=== PATIENT | female | born 1945 | race Caucasian/White ===

== ENCOUNTER 2019-09-08 12:21 | Day surgery (SDC) | payer MEDICARE, SELFPAY ==
[2019-09-08] VITALS (12 sets, daily range): BP systolic 119–148; BP diastolic 41–79; PULSE 80–96; RESP 15–26; TEMP 36.8–38.1; O2SAT 92–98; BMI 36.8
--- NOTE | 2019-09-08 12:26 | PM.PREOP ---
Pre-operative Note Interval Note History & Physical reviewed/Exam performed by Physician: Yes Changes to H&P: No H&P completed within 30 days and has changed as indicated here:: No changes to the history and physical examination scanned on file.
--- NOTE | 2019-09-08 12:46 | SUR.OPER ---
Lithotomy on padded OR bed, head on pillow, arms secured on padded arm boards at <90 degrees abduction. Legs secured in padded yellow fins stirrups.
[2019-09-08] MEDS: LACTATED RINGERS 1,000 ML 42 ML IV (13:00)
--- NOTE | 2019-09-08 13:00 | PM.PREOP ---
Pre-operative Note Interval Note History & Physical reviewed/Exam performed by Physician: Yes Changes to H&P: No H&P completed within 30 days and has changed as indicated here:: There are no changes to the history and physical examination scanned on file.
[2019-09-08] MEDS: CEFAZOLIN 2 GM/100 ML FROZ.PIGGY IV (13:15)
--- NOTE | 2019-09-08 13:46 | SUR.OPER ---
Lithotomy on padded OR bed, head on pillow, arms secured on padded arm boards at <90 degrees abduction. Legs secured in padded yellow fins stirrups.
[2019-09-08] MEDS: BELLADONNA/OPIUM SUPPOSITORIES 1 EACH PR (14:28)
--- NOTE | 2019-09-08 14:33 | PM.OP.1 ---
Operative Date/Time/Diagnoses Date of procedure: 09/08/19 Time of procedure: 14:33 Pre-op diagnosis: Obstructing 7 x 9 mm left proximal ureteral calculus. History of urosepsis/pyelonephritis. Post-op diagnosis: same Procedure & Clinicians Procedure: 1. Cystoscopy and left ureteroscopic laser lithotripsy. 2. Cystoscopy and removal left ureteral stent. Same procedure as scheduled: Yes Indications: 1. Obstructing 7 x 9 mm left proximal ureteral calculus. 2. History of urosepsis/pyelonephritis. Surgeon: Regla Madsen Click Yes if Unassisted: Yes Anesthesia Type: General Operative Notes Findings: 1. Urethra-moderate size caruncle. 2. Grade 2 +cystocele. 3. Bladder-trace trabeculation normal position of the orifices bilaterally. The left ureteral orifice had expected edema and erythema in association with an encrusted stent. 4. A larger calculus was identified near the same position seen previously radiographically there appeared to be either a 2nd stone or fragment of the dominant stone located at the level of the UPJ. Ran stones were fragmented with the laser and fragments evacuated from the ureter. Specimen was obtained postoperatively from the drain and submitted for routine crystallographic analysis. Closure Type: not applicable Specimen(s): other (Stone fragments from left ureter.) Estimated Blood Loss (mL): 0 Blood products transfused: none Tourniquet time (min): 0 Procedure in detail: Patient was positioned supine and following successful placement of spinal anesthetic. The lower abdomen genitalia groin and vaginal vault were then prepped and draped in sterile fashion. The 22 Malay panendoscope was then passed lower urinary tract. Foreign body grasper was then utilized to engage the encrusted stent and removed it in its entirety. Scope was then replaced and a 0.35 sensor tip guidewire was advanced in the left collecting system under direct fluoroscopic guidance. Next the semi rigid ureteral scope was introduced into the urethra through the bladder and into the left ureteral orifice and advanced proximally again under direct and fluoroscopic guidance with the findings as described above the proximal-most stone was inaccessible with the laser fiber. And entrap basket was then utilized to lightly engage the calculus in rotated and drag it into the proximal ureter proper. The basket was then removed and the late and a 2 73 micron fiber was selected. All operating room personnel and patient were fitted with laser safety eyewear. Laser lithotripsy was then commenced with excellent subsequent stone fragmentation. The 2nd, larger calculus was then addressed and likewise was fragmented well with the laser fiber. Small fragments and chips were evacuated from the ureter proper. Decision was made to not leave a ureteral stent. The the bladder was filled to capacity and 3 occasions and fragments evacuated from its base. The patient was then repositioned supine, was transferred to [facility] and transferred to recovery in stable condition. Complications: none Post-operative Condition: stable Disposition: PACU Plan for aftercare: Discharge home
[2019-09-08] MEDS: FUROSEMIDE 40 MG/4 ML VIAL 20 MG IV (15:20)
[2019-09-08] MEDS: fentaNYL 100 MCG/2 ML INJ IV ×2 (15:45→15:50)
[2019-09-08] MEDS: OXYCODONE IR 5 MG TABLET PO (15:47)
[2019-09-08] MEDS: MORPHINE 2 MG/ML INJ IV (18:01)
[2019-09-08] MEDS: ONDANSETRON 4 MG/2 ML INJ IV (18:01)
--- NOTE | 2019-09-08 20:16 | PC.NURSE ---
discharge- Patient left via wheelchair per MD. Patient able to wiggle toes and move legs and was able to walk without issue. Discharge paperwork and instructions reviewed and signed. Patient left via wheelchair to private car at 2014 with all person belongings.
== END 2019-09-08 20:15 | disposition home or self-care (01) ==
LOC: OR 14:42 → AC 16:09
PROVIDERS: PCP Nurse Practitioner; Referring Provider Specialist; Visit Provider Specialist
PROC: (CPT 52353; principal; 2019-09-08 12:30)
DX: N20.1 Calculus of ureter (principal); N81.10 Cystocele, unspecified; I10 Essential (primary) hypertension; E66.01 Morbid (severe) obesity due to excess calories; J44.9 Chronic obstructive pulmonary disease, unspecified
CPT/HCPCS: 52353; 76000; 82365; J0690; J1940; J2250; J2270; J2405; J3010